=== PATIENT | male | born 1950 | race Two or more races ===

== ENCOUNTER → 2020-01-16 | Emergency (ER) | payer OTHER, MEDICAID ==
[~2020-01-16] VITALS: Ht 170.2 cm; Wt 68.0 kg
[~2020-01-16] MED LIST: KETOROLAC TROMETH 60MG/2ML VIAL IM ONE
[2020-01-16 13:14] VITALS: BP 144/99
== END | disposition home or self-care (01) ==
LOC: ER 12:21
DX: L98.9 Disorder of the skin and subcutaneous tissue, unspecified (principal); F17.210 Nicotine dependence, cigarettes, uncomplicated
CPT/HCPCS: 96372; 99283; J1885

== ENCOUNTER 2022-08-12 15:18 | Emergency (ER) | payer OTHER, MEDICAID ==
[~2022-08-12] VITALS: Ht 170.2 cm; Wt 66.9 kg
[2022-08-12 16:08] VITALS: BP 134/77
== END 2022-08-13 00:03 | disposition left against medical advice (07) ==
LOC: ER 15:18
DX: M25.562 Pain in left knee (principal); R07.81 Pleurodynia; M54.50 Low back pain, unspecified; M25.552 Pain in left hip; M25.551 Pain in right hip; Z53.21 Procedure and treatment not carried out due to patient leaving prior to being seen by health care provider; V43.52XA Car driver injured in collision with other type car in traffic accident, initial encounter; Y93.89 Activity, other specified; Y92.410 Unspecified street and highway as the place of occurrence of the external cause; Y99.8 Other external cause status
CPT/HCPCS: 71250; 72128; 72131; 74176